=== PATIENT | female | born 2000 | race Caucasian/White ===

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

== ENCOUNTER 2021-01-01 13:00 | Outpatient (RCR) | payer MEDICAID, SELFPAY | END 2021-01-06 23:59 | LOC: NS 13:00 | PROVIDERS: PCP Family Medicine; Visit Provider Family Medicine | DX: Z71.3 Dietary counseling and surveillance (principal); E66.3 Overweight | CPT/HCPCS: 97803 ==

== ENCOUNTER 2021-01-29 11:30 | Outpatient (RCR) | payer MEDICAID, SELFPAY | END 2021-01-29 23:59 | disposition home or self-care (01) | LOC: NS 11:30 | PROVIDERS: PCP Family Medicine; Visit Provider Family Medicine | DX: Z71.3 Dietary counseling and surveillance (principal); E66.3 Overweight; Z68.53 Body mass index [BMI] pediatric, 85th percentile to less than 95th percentile for age | CPT/HCPCS: 97803 ==

== ENCOUNTER 2021-06-06 17:17 | Emergency (ER) | payer MEDICAID, SELFPAY ==
[2021-06-06 17:18] VITALS: BP 142/87; PULSE 97; PULSE 99; RESP 16; TEMP 36.8; O2SAT 97; O2SAT 98; BMI 28.4
--- NOTE | 2021-06-06 18:48 | EDS_ITS ---
HPI HPI - GI History of Present Illness Chief Complaint: Abd Pain Narrative Narrative: States that he working out Patient presenting with nausea, vomiting, diarrhea for the last 3 days. She has diffuse generalized tenderness. She states that at times it is worse on the right and other times it is worse on the left. Patient states that she has not traveled anywhere or eaten anything exotic. Nobody else has nausea, vomiting, diarrhea at her house. She has had a low-grade fever which is not present on arrival. Patient denies black or bloody stools. Patient denies urinary complaints. [facility] Medical History Seasonal allergies Home Medications levonorgestrel 0.15 mg-ethinyl estradiol 0.03 mg tablet 1 tab PO DAILY #84 tab 08/23/20 [Rx Last Taken Unknown] ondansetron HCl [Zofran] 4 mg PO Q8H PRN #20 tab 06/06/21 [Rx Last Taken Unknown] Allergy/AdvReac Type Severity Reaction Status Date / Time No Known Allergies Allergy Verified 10/07/20 15:32 Family History Grandfather Heart disease Hypertension Dementia Grandmother Hypertension Mother Hypertension Social History Smoking Status: Never smoker alcohol intake: never substance use type: does not use caffeine: Yes what type of physical activity do you participate in: walking frequency: 1-2 times per week seatbelt use: always do you feel safe at home: Yes additional social history: Works in [employer] at [employer] ROS ED Constitutional Constitutional ED: Reports fever(s); Denies chills or sweats Eyes Eyes: Denies blurry vision or change in vision ENT ENT ED: Denies ear pain, rhinorrhea or sore throat Cardiovascular Cardiovascular: Denies chest pain, palpitations or racing heartbeat Respiratory/Chest Respiratory/Chest: Denies cough, dyspnea or sputum Gastrointestinal Gastrointestinal: Reports abdominal pain, diarrhea, nausea and vomiting; Denies constipation Genitourinary Genitourinary ED: Denies dysuria, hematuria or urinary frequency Musculoskeletal Musculoskeletal: Denies arthralgias, myalgias or neck pain Integumentary Denies abscess, Abrasions or rash Neurologic Neurologic: Denies headache(s), paresthesias or weakness Psychiatric Psychiatric: Denies anxiety, depression, suicidal ideation or suicidal thoughts Endocrine Endocrinology: Denies polydipsia or polyuria EXAM Physical Exam Const Vital Signs: 06/06/21 17:18 06/06/21 21:28 Temperature 98.2 F 100.3 F H Temperature Source Temporal Oral Pulse Rate 97 91 Respiratory Rate 16 18 Blood Pressure 142/87 H 110/70 Blood Pressure Mean 105 83 Pulse Ox 98 100 Oxygen Delivery Method Room Air Room Air Positive well nourished General Appearance ED: NAD HEENT Reports moist mucous membranes normocephalic and atraumatic Eyes PERRL and EOMs intact bilaterally General Eye ED: Negative for pale conjunctiva or scleral icterus Resp normal respiratory effort and clear to auscultation bilaterally Cardio regular rate and regular rhythm GI non-distended GI Narrative: Generalized tenderness to palpation without focal tenderness. Abdomen is nonperitoneal. Auscultation: hyperactive bowel sounds Palpation: soft Extremity full ROM General Extremety ED: Negative for edema General Extremity: Negative for edema Neuro Sensorium / Orientation: alert, oriented to person and oriented to place Psych mental status grossly normal and thought process normal Skin Lesions: no lesions Rashes: no rashes MDM MDM MDM Narrative Medical decision making narrative: 21-year-old female presenting with nausea, vomiting, diarrhea. On examination she has diffuse generalized tenderness. Her lab work shows a white blood cell count 11.4, hemoglobin 14.7, hematocrit 43.5, platelets 292. Renal function and electrolytes are normal. LFTs and lipase are normal. Urinalysis is negative for infection. hCG negative. On CT patient has diffuse enterocolitis worse in the right hemicolon. Appendix is visualized and she does not have appendicitis. Attempted to obtain stool studies for the patient as she developed a fever of 100.3 in the ED. She states that she is unable to give a stool sample at this time. Patient was given a prescription for outpatient studies. Patient will continue to use Tylenol ibuprofen to control fevers. She is given Zofran for nausea.She is given return precautions. Patient stable for discharge at this time. Impression: 1. Enterocolitis 2. Febrile illness 3. Abdominal pain Lab Data Attestation: I reviewed the patient's lab results. Labs: Laboratory Results - last 24 hr 06/06/21 06/06/2106/06/21 19:03 19:03 20:00 WBC 11.4 H RBC 4.70 Hgb 14.7 Hct 43.5 MCV 92.6 MCH 31.3 MCHC 33.8 RDW Std Deviation 40.4 RDW Coeff of Ava 11.7 Plt Count 292 MPV 9.7 Immature Gran % (Auto) 0.400 Neut % (Auto) 81.7 H Lymph % (Auto) 10.5 L [place] % (Auto) 6.4 Eos % (Auto) 0.7 Baso % (Auto) 0.3 Absolute Neuts (auto) 9.4 H Absolute Lymphs (auto) 1.20 Nucleated RBC % 0 Sodium 135 L Potassium 4.0 Chloride 102 Carbon Dioxide 25.0 Anion Gap 8 BUN 10 Creatinine 0.71 Estim Creat Clear Calc 109.14 Est GFR (MDRD) Af Amer 134 Est GFR (MDRD) Non-Af 111 BUN/Creatinine Ratio 14.0 Glucose 84 Calcium 8.8 Total Bilirubin 0.30 AST 13 L ALT 22 Alkaline Phosphatase 59 Total Protein 7.5 Albumin 3.5 Globulin 4.0 Albumin/Globulin Ratio 0.9 Lipase 47 L Urine Color Yellow Urine Clarity Clear Urine pH 5.0 Ur Specific [place] 1.020 Urine Protein 30 H Urine Glucose (UA) Normal Urine Ketones 50 H Urine Occult Blood 50 H Urine Nitrite Negative Urine Bilirubin Negative Urine Urobilinogen Normal Ur Leukocyte Esterase 25 H Urine RBC 0-5 SEEN Urine WBC 0-5 SEEN Ur Squamous Epith Cells 0-5 SEEN Urine Bacteria RARE Urine Mucus 0 SEEN Urine Test Negative Radiography Diagnostic Testing: Radiology Impression Abdomen/Pelvis CT 06/06/21 20:30 IMPRESSION: Findings consistent with enterocolitis. Most severe findings involve the right colon. Individualized dose optimization techniques were used for this CT. at 2112 Reported and signed by: Al Flores MD Electronically Signed: Al Flores MD at 21:11 EDT Tel , Service support , Discharge Plan Triage Chief Complaint: Abd Pain ED Provider: Jacob Romero Dx/Rx/DC Orders Instructions: ED Diarrhea, Unknown Cause Prescriptions: New ondansetron HCl [Zofran] 4 mg tablet 4 mg PO Q8H PRN (Reason: nausea and vomiting) Qty: 20 RF: 0 No Action levonorgestrel-ethinyl estrad 0.15-0.03 mg tablet 1 tab PO DAILY Qty: 84 RF: 4 Primary Care Provider: Fernandez Clifton Referrals: Fernandez Clifton MD [Primary Care Provider] - Disposition Disposition: Home, Self Care Discharge Date/Time: 06/06/21 23:00
[2021-06-06] MEDS: 0.9% Normal Saline 1,000 ML 1000 ML IV (19:00)
[2021-06-06 19:14] LABS: Absolute Neutrophil Count 9.4 X10^3/uL (2.0-7.7); Basophil# 0.03 X10^3/uL; Basophil% 0.3 % (0-1); Eosinophil# 0.08 X10^3/uL; Eosinophils% 0.7 % (0-5); Hematocrit 43.5 % (37-47); Hemoglobin 14.7 g/dL (12.0-15.0); Lymphocyte % 10.5 % (19-41); Mean Corp Hgb Conc 33.8 g/dL (32-36); Mean Corpuscular Hgb 31.3 pg (27.0-32.0); Mean Corpuscular Volume 92.6 fL (81-99); Mean Platelet Vol. 9.7 fl (6.2-12.0); Monocyte# 0.73 X10^3/uL; Monocyte% 6.4 % (0-10); NRBC Flagged by Analyzer 0 % (0-5); Neutrophil # 9.35 X10^3/uL (2.7-7.7); Neutrophil % 81.7 % (47-70); Platelet Count 292 K/mm3 (150-450); RBC Distribution Width CV 11.7 % (11.6-14.6); RBC Distribution Width SD 40.4 fl (35.1-43.9); White Blood Count 11.4 K/mm3 (4.4-11.0)
[2021-06-06 19:33] LABS: ALB/GLOB Ratio 0.9 RATIO (0.9-2.4); AST(SGOT) 13 U/L (15-37); Alanine Aminotransfer ALT/SGPT 22 U/L (13-56); Albumin, Serum 3.5 g/dL (3.2-5.0); Alkaline Phosphatase 59 U/L (45-117); Anion Gap 8 (5-15); BUN 10 mg/dL (7-18); Calcium,Total 8.8 mg/dL (8.5-10.1); Chloride 102 mmol/L (98-107); Creatinine, Serum 0.71 mg/dL (0.55-1.02); EST Glomerular Filtration Rate 111 mL/min (>60); Est Glom Filt Rate - Afr Amer 134 mL/min (>60); Estimated Creatinine Clearance 109.14 ml/min; Glucose 84 mg/dL (74-106); Lipase 47 U/L (73-393); Protein, Total 7.5 g/dL (6.4-8.2); Sodium Level 135 mmol/L (136-145)
[2021-06-06 20:07] LABS: Color, Urine Yellow (Yellow); Glucose, Dipstick Normal (Normal); Ketone-Dipstick 50 mg/dl (Negative); Leukocyte Esterase-Dipstick 25 /ul (Negative); Mucous, Urine 0 SEEN /hpf (<or=2+); Nitrite-Dipstick Negative (Negative); Occult Blood-Urine 50 /ul (Negative); Protein-Dipstick 30 mg/dl (Negative); Urine Bilirubin Dipstick Negative (Negative); Urine Clarity Clear (Clear); Urine Urobilinogen Normal (Normal)
[2021-06-06 20:21] LABS: Bacteria RARE /hpf (None Seen); Red Blood Cells-Urine 0-5 SEEN /hpf (0-5); Squamous Epithelial Cells - UA 0-5 SEEN /hpf (5-10); White Blood Cells 0-5 SEEN /hpf (0-5)
[2021-06-06 20:22] LABS: Internal QC Validated? YES +Cl - CLEAR BKGD; Pregnancy, Urine Negative Negative
--- NOTE | 2021-06-06 20:30 | CT_ITS ---
HISTORY: Abdominal Pain EXAMINATION: CT Abdomen And Pelvis W/ Contrast Injection TECHNIQUE: Helically acquired images were obtained of the abdomen and pelvis following IV contrast. A radiation dose optimization technique was used for this scan. IV Contrast dosage and agent: 100mL Isovue-300 Oral contrast: None. COMPARISON: None FINDINGS: LOWER CHEST: Lung bases are clear. No cardiomegaly or pericardial effusion. LIVER: Homogeneous. No focal mass. GALLBLADDER AND BILIARY TREE: No calcified gallstones. No gallbladder distension or wall edema. No intra- or extrahepatic biliary ductal dilation. PANCREAS: No focal cystic or solid mass. SPLEEN: Normal size without focal cystic or solid mass. ADRENAL GLANDS: No nodules. KIDNEYS AND URETERS: Normal renal size and position. No hydronephrosis. PERITONEUM: No free air. Small amount of pelvic ascites. BOWEL: Normal appendix. No stomach or bowel distension. Increased small bowel fluid contents. Diffuse colonic wall thickening from the cecum through the transverse to the proximal descending colon with increased colonic fluid burden and scattered fluid levels into the descending colon. LYMPH NODES: Cluster of mildly enlarged mesenteric lymph nodes in the right lower quadrant. VESSELS: Aorta is non-dilated. URINARY BLADDER: Unremarkable. REPRODUCTIVE ORGANS: No pelvic masses. 16 mm right ovarian follicle BONES: Unremarkable. CT/Abdomen/Pelvis W IV Cont ONLY IMPRESSION: Findings consistent with enterocolitis. Most severe findings involve the right colon. Individualized dose optimization techniques were used for this CT. at 2112 Reported and signed by: Al Flores MD Electronically Signed: Al Flores MD at 21:11 EDT Tel , Service support ,
[2021-06-06 21:28] VITALS: BP 110/70; PULSE 91; RESP 18; TEMP 37.9; O2SAT 100
[2021-06-06] MEDS: Acetaminophen 500 MG Tablet 1000 MG PO (22:20)
[2021-06-06] MEDS: Ondansetron 4 MG/2 ML Vial IV (22:59)
--- NOTE | 2021-06-10 09:36 | ED.RN ---
CALLED A PRESCRIPTION FOR AZITHTROMYOCIN TO [facility] [place]. AP[place]ON[place];LED AND LEFT MESSAGE FOR PT
== END 2021-06-06 23:00 | disposition home or self-care (01) ==
PROVIDERS: Emergency Provider Student in an Organized Health Care Education/Training Program; PCP Family Medicine
DX: K52.9 Noninfective gastroenteritis and colitis, unspecified (principal); Z79.3 Long term (current) use of hormonal contraceptives
CPT/HCPCS: 74177; 80053; 81001; 81025; 83690; 85025; 96374; 99284; J7030; Q9967; A4216; J2405

== ENCOUNTER → 2021-06-07 13:24 | Outpatient (CLI) | payer MEDICAID, SELFPAY ==
[2021-06-10 21:04] LABS: Giardia Lamblia, Stool EIA Negative (Negative)
== END ==
PROVIDERS: PCP Family Medicine; Referring Provider Student in an Organized Health Care Education/Training Program; Visit Provider Student in an Organized Health Care Education/Training Program
DX: R19.7 Diarrhea, unspecified (principal)
CPT/HCPCS: 83630; 87329; 87493; 87506

== ENCOUNTER → 2022-05-19 | Outpatient (CLI) | payer OTHER, MEDICAID, SELFPAY | END | disposition home or self-care (01) | PROVIDERS: PCP Family Medicine; Visit Provider Nurse Practitioner Family | DX: J03.90 Acute tonsillitis, unspecified (principal) | CPT/HCPCS: 87070 ==

== ENCOUNTER → 2022-06-16 | Outpatient (CLI) | payer OTHER, SELFPAY ==
[2022-06-17 22:06] LABS: Chlamydia By Nucleic Acid AMP Negative (Negative)
[2022-06-17 23:12] LABS: Gonococcus By Nucleic Acid AMP Negative (Negative)
[2022-06-18 14:32] LABS: HPV Reflexed? NOT INDICATED
== END | disposition home or self-care (01) ==
LOC: LABSPEC 11:12
PROVIDERS: PCP Family Medicine; Referring Provider Nurse Practitioner Women's Health; Visit Provider Nurse Practitioner Women's Health
DX: Z11.3 Encounter for screening for infections with a predominantly sexual mode of transmission (principal); Z12.4 Encounter for screening for malignant neoplasm of cervix
CPT/HCPCS: 87491; 87591; 88175; G0145